=== PATIENT | male | born 1975 | race African-American/Black ===

== ENCOUNTER 2020-06-01 10:48 | Inpatient (IN) | payer MEDICAID ==
[~2020-06-01] VITALS: Ht 182.9 cm; Wt 157.3 kg
--- NOTE | ~2020-06-01 | HC ---
[facility] [place] [address] CONSULTATION Name: JENNIFER CALVILLO Room #: [facility] IN M.R.#: [id number] Admission: 06/01/20 Attend Phys: Juan A Zavala MD Discharge: 06/11/20 Date of : 77 Report #: [id number] THIS REPORT FOR: cc: FAM - No family physician/PCP FAM - No family physician/PCP Boyd Sheridan MD ~ DATE OF SERVICE: 06/08/2020 CHIEF COMPLAINT: Sacral pressure ulceration. HISTORY OF PRESENT ILLNESS: This is a 44-year-old male patient with no known past medical history who was admitted with generalized weakness. He was noted to have significant elevation in his blood glucose and in DKA. He is noted to have a sacral pressure ulcer and I have been asked to see him with regard to wound care. PAST MEDICAL HISTORY: Relatively unknown for previous illness or injury. Clearly, he has had some issues with diabetes and renal insufficiency, but these have been undiagnosed. FAMILY HISTORY: Positive for history of renal disease. ALLERGIES: He has no known drug allergies. MEDICATIONS: Upon admission were none. SOCIAL HISTORY: Negative for alcohol or tobacco use. REVIEW OF SYSTEMS: Very limited. The patient has some encephalopathy. He denies significant pain in his gluteal region. Denies shortness of breath or chest pain at this time. Other systems are either negative or unobtainable. PHYSICAL EXAMINATION: VITAL SIGNS: At this time include temperature 36.7, pulse 92, respiratory rate 16, blood pressure 136/84. GENERAL: This is a somewhat chronically ill-appearing male patient who appears to be in mild discomfort. HEENT: Head normocephalic. Nose and throat are clear. NECK: Supple. ABDOMEN: Bowel sounds are present. EXTREMITIES: demonstrate without clubbing or cyanosis. Sacral gluteal region demonstrates stage 2 sacral pressure ulceration with moderate fibrin present. No exposure of deep structures and does not appear to be overtly infected. [facility] [address] [place] [address] CONSULTATION Name: JENNIFER CALVILLO Room #: 355-P [facility] IN [facility].#: [id number] Admission: 06/01/20 Attend Phys: Juan A Zavala MD Discharge: 06/11/20 Date of : 77 Report #: [id number] LABORATORY DATA: Include a sodium 148, potassium 4.9, chloride 116, CO2 of 23, BUN 54, creatinine 2.9, glucose 189. Hemoglobin A1c 16.4, albumin 1.9. White blood cell count 19.6 with hemoglobin of 10.0. DIAGNOSTIC STUDIES: MRI of the left foot does not show evidence of abscess or underlying osteomyelitis. CLINICAL IMPRESSION: 1. Cellulitis of the left foot. 2. Stage 3 pressure ulcer of the sacrococcygeal region. 3. Uncontrolled newly diagnosed diabetes mellitus. 4. Hypertension. 5. Renal insufficiency. RECOMMENDATIONS: At this point in time, I have discussed with the patient the importance of diet and then the future exercise. We will recommend AmLactin lotion to the left foot. Recommend moisture barrier cream to the sacral region, low air loss mattress, q. 2 hour turning and repositioning. By: [id number] Boyd Sheridan MD /nt
[2020-06-01 10:51] VITALS: BP 125/81
[2020-06-01 11:14] LABS: HEMOGLOBIN 12.4 gm/dL (14.0-18.0); MCH 25.9 pg (26.0-34.0); MCHC 30.3 g/dL (28.0-37.0); MCV 85.5 fL (80.0-100.0); RDW 15.4 % (10.5-14.5); WBC 18.8 thou/uL (4.0-11.0)
[2020-06-01 11:37] LABS: ALBUMIN 2.2 g/dL (3.4-5.0); ANION GAP 19 mmol/L (7-16); BUN 123 mg/dL (7-18); CALCIUM 8.7 mg/dL (8.5-10.1); CHLORIDE 81 mmol/L (98-107); CO2 16 mmol/L (21-32); CREATININE 5.8 mg/dL (0.7-1.3); DIRECT BILIRUBIN 1.5 mg/dL (<0.1-0.2); POTASSIUM 5.5 mmol/L (3.5-5.1); SGOT 64 U/L (15-37); SGPT 52 U/L (30-65); TOTAL BILIRUBIN 2.1 mg/dL (0.2-1.0); TOTAL PROTEIN 8.7 g/dL (6.4-8.2); TROPONIN-I <0.06 ng/mL (<0.06)
[2020-06-01 11:39] LABS: SODIUM 116 mmol/L (136-145)
[2020-06-01 11:54] LABS: BE(vivo) -10.8 mmol/L (-2 to +3); HCO3 13.8 mmol/L (22.0-26.0); PO2 94.8 mmHg (80.0-100.0); pH 7.312 (7.360-7.450); sO2 96.8 % (92.0-98.0)
[2020-06-01 12:22] LABS: GLUCOSE 1441 mg/dL (74-106)
[2020-06-01 12:27] LABS: URINE BILIRUBIN NEGATIVE (Negative); URINE BLOOD 3+ (Negative); URINE CLARITY CLOUDY; URINE COLOR YELLOW; URINE GLUCOSE-RANDOM* 3+ (Negative); URINE KETONES NEGATIVE (Negative); URINE NITRITE-REFLEX NEGATIVE (Negative); URINE PROTEIN (DIPSTICK) 1+ (Negative); URINE UROBILINOGEN 0.2 E.U./dl (0.2-1.0)
[2020-06-01 12:29] LABS: URINE LEUKOCYTES-REFLEX 1+ (Negative)
[2020-06-01 12:36] LABS: AMP/METHAMP Negative (Negative); BARBITURATES Negative (Negative); BENZODIAZEPINES Negative (Negative); COCAINE Negative (Negative); METHADONE Negative (Negative); OPIATES Negative (Negative); PCP Negative (Negative)
[2020-06-01 12:44] LABS: MAGNESIUM 3.2 mg/dL (1.8-2.4); PHOSPHORUS 6.3 mg/dL (2.5-4.9)
[2020-06-01 12:53] LABS: CASTS None Seen /LPF (None Seen); SQUAMOUS 0-3 Few /LPF (0-3)
[2020-06-01 12:54] LABS: CRYSTALS None Seen /LPF (None Seen)
[2020-06-01 12:56] LABS: MUCUS 0-3 Light strn/LPF (None Seen); URINE RBC 0-2 Rare /HPF (0-2); URINE WBC-REFLEX 6-15 Few /HPF (0-5)
[2020-06-01 13:14] LABS: PLATELET COUNT 259 thou/uL (150-400); PLATELET ESTIMATE NORMAL
--- NOTE | 2020-06-01 13:37 | EKG ---
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: emanuel : 1975 Requested By: Mushtaq Patrick Order Number: [id number] MD: Trey Rodriguez Measurements Intervals [place] Rate: 125 P: 78 [place]: 146 QRS: 5 QRSD: 90 T: 22 QT: 331 QTc: 478 Interpretive Statements Sinus tachycardia Abnormal R-wave progression, late transition Borderline prolonged QT interval No previous ECG available for comparison Electronically Signed On 06-01-2020 13:36:54 SOLUTION ARCHITECT by Trey Rodriguez [email or web address] <ELECTRONICALLY SIGNED> By: Trey Rodriguez MD, FACC 06/01/20 1336 1104 1104 Trey Rodriguez MD, [facility] /EPI
[2020-06-01 13:55] LABS: ALBUMIN 2.3 g/dL (3.4-5.0); CALCIUM 8.9 mg/dL (8.5-10.1); CREATININE 5.9 mg/dL (0.7-1.3); PHOSPHORUS 6.8 mg/dL (2.5-4.9); POTASSIUM 5.7 mmol/L (3.5-5.1)
[2020-06-01 14:58] LABS: FOLIC ACID 7.9 ng/mL (8.6-58.9); TSH 0.293 uIU/mL (0.358-3.740)
[2020-06-01 15:40] LABS: INR 1.2; PROTIME 12.3 Seconds (9.3-11.4)
[2020-06-01 22:03] LABS: ALBUMIN 1.6 g/dL (3.4-5.0); CALCIUM 7.6 mg/dL (8.5-10.1); MAGNESIUM 2.7 mg/dL (1.8-2.4); PHOSPHORUS 3.7 mg/dL (2.5-4.9)
[2020-06-01 22:09] LABS: POTASSIUM 4.2 mmol/L (3.5-5.1)
[2020-06-02] VITALS (13 sets, daily range): BP systolic 107–168; BP diastolic 73–113
[2020-06-02 01:41] LABS: BE(vivo) -6.2 mmol/L (-2 to +3); HCO3 18.7 mmol/L (22.0-26.0); PCO2 35.3 mmHg (35.0-45.0); PO2 87.1 mmHg (80.0-100.0); pH 7.343 (7.360-7.450); sO2 96.2 % (92.0-98.0)
[2020-06-02 02:21] LABS: ALBUMIN 1.9 g/dL (3.4-5.0); CALCIUM 8.4 mg/dL (8.5-10.1); CREATININE 4.5 mg/dL (0.7-1.3); PHOSPHORUS 3.5 mg/dL (2.5-4.9); POTASSIUM 4.4 mmol/L (3.5-5.1)
[2020-06-02 06:11] LABS: ABSOLUTE NEUTROPHILS 15.8 thou/uL (1.4-8.2); BASOPHILS 0.2 % (0.0-2.0); HEMATOCRIT 36.4 % (42.0-52.0); HEMOGLOBIN 12.1 gm/dL (14.0-18.0); LYMPHOCYTES 9.9 % (24.0-44.0); MCH 26.5 pg (26.0-34.0); MCHC 33.2 g/dL (28.0-37.0); MONOCYTES 4.5 % (1.0-8.0); PLATELET COUNT 257 thou/uL (150-400); POLYS 85.4 % (36.0-66.0); RBC 4.55 mil/uL (4.50-6.00); RDW 14.6 % (10.5-14.5); WBC 18.5 thou/uL (4.0-11.0)
[2020-06-02 06:50] LABS: ALBUMIN 1.9 g/dL (3.4-5.0); ANION GAP 15 mmol/L (7-16); BUN 119 mg/dL (7-18); CALCIUM 8.9 mg/dL (8.5-10.1); CHLORIDE 103 mmol/L (98-107); CHOLESTEROL 127 mg/dL (<200); CO2 18 mmol/L (21-32); CREATININE 4.3 mg/dL (0.7-1.3); HDL CHOLESTEROL 8 mg/dL (>40); MAGNESIUM 3.2 mg/dL (1.8-2.4); PHOSPHORUS 3.4 mg/dL (2.5-4.9); POTASSIUM 4.2 mmol/L (3.5-5.1); SODIUM 136 mmol/L (136-145); TC:HDL 15.9 Ratio (Not establshd)
[2020-06-02 06:52] LABS: GLUCOSE 533 mg/dL (74-106)
[2020-06-02 08:17] LABS: ALBUMIN 1.9 g/dL (3.4-5.0); CALCIUM 8.8 mg/dL (8.5-10.1); CREATININE 4.3 mg/dL (0.7-1.3); POTASSIUM 4.2 mmol/L (3.5-5.1); TOTAL BILIRUBIN 1.3 mg/dL (0.2-1.0); TOTAL PROTEIN 8.2 g/dL (6.4-8.2)
[2020-06-02 10:41] LABS: ALBUMIN 1.8 g/dL (3.4-5.0); CALCIUM 8.6 mg/dL (8.5-10.1); CREATININE 4.2 mg/dL (0.7-1.3); PHOSPHORUS 3.7 mg/dL (2.5-4.9); POTASSIUM 4.2 mmol/L (3.5-5.1)
[2020-06-02 19:28] LABS: TRIGLYCERIDE 433 mg/dL (<150); VLDL 87 mg/dL (<40)
[2020-06-03] VITALS (13 sets, daily range): BP systolic 100–155; BP diastolic 71–104
[2020-06-03 06:23] LABS: ABSOLUTE NEUTROPHILS 16.5 thou/uL (1.4-8.2); BASOPHILS 0.2 % (0.0-2.0); EOSINOPHILS 0.2 % (0.0-3.0); HEMATOCRIT 36.2 % (42.0-52.0); HEMOGLOBIN 11.9 gm/dL (14.0-18.0); LYMPHOCYTES 8.4 % (24.0-44.0); MCH 26.1 pg (26.0-34.0); MCHC 32.9 g/dL (28.0-37.0); MCV 79.4 fL (80.0-100.0); MONOCYTES 3.5 % (1.0-8.0); PLATELET COUNT 277 thou/uL (150-400); POLYS 87.7 % (36.0-66.0); RBC 4.56 mil/uL (4.50-6.00); RDW 14.8 % (10.5-14.5); WBC 18.8 thou/uL (4.0-11.0)
[2020-06-03 06:34] LABS: CALCIUM 9.3 mg/dL (8.5-10.1); CREATININE 3.6 mg/dL (0.7-1.3)
[2020-06-03 06:40] LABS: ALBUMIN 1.7 g/dL (3.4-5.0); TOTAL BILIRUBIN 1.9 mg/dL (0.2-1.0); TOTAL PROTEIN 7.9 g/dL (6.4-8.2)
[2020-06-04] VITALS (19 sets, daily range): BP systolic 112–174; BP diastolic 76–107
[2020-06-04 09:22] LABS: HEMATOCRIT 34.4 % (42.0-52.0); HEMOGLOBIN 11.1 gm/dL (14.0-18.0); MCH 25.9 pg (26.0-34.0); MCHC 32.2 g/dL (28.0-37.0); MCV 80.3 fL (80.0-100.0); RBC 4.29 mil/uL (4.50-6.00); RDW 15.1 % (10.5-14.5); WBC 19.5 thou/uL (4.0-11.0)
[2020-06-04 09:33] LABS: ALBUMIN 1.8 g/dL (3.4-5.0); CALCIUM 8.6 mg/dL (8.5-10.1); CREATININE 3.8 mg/dL (0.7-1.3); PHOSPHORUS 2.9 mg/dL (2.5-4.9); POTASSIUM 5.4 mmol/L (3.5-5.1)
[2020-06-04 22:44] LABS: URINE BILIRUBIN 1+ (Negative); URINE BLOOD 3+ (Negative); URINE CLARITY CLEAR; URINE COLOR YELLOW; URINE GLUCOSE-RANDOM* NEGATIVE (Negative); URINE KETONES NEGATIVE (Negative); URINE NITRITE-REFLEX NEGATIVE (Negative); URINE PROTEIN (DIPSTICK) 1+ (Negative)
[2020-06-04 22:46] LABS: URINE LEUKOCYTES-REFLEX 1+ (Negative)
[2020-06-04 22:54] LABS: ICTOTEST (BILI CONFIRMATORY) Positive (Negative)
[2020-06-04 23:04] LABS: AMORPHOUS URATES Few /LPF (None Seen); CASTS None Seen /LPF (None Seen); MUCUS 0-3 Light strn/LPF (None Seen); SQUAMOUS 4-10 Moderate /LPF (0-3); URINE RBC 3-10 Few /HPF (0-2); URINE WBC-REFLEX 0-5 Rare /HPF (0-5)
[2020-06-04 23:05] LABS: BACTERIA-REFLEX 1-9 Few /HPF (None Seen); CRYSTALS None Seen /LPF (None Seen); TRANSITIONAL EPITHEL CELL 0-3 Few /LPF (None Seen)
[2020-06-05] VITALS (9 sets, daily range): BP systolic 104–257; BP diastolic 80–201
[2020-06-05 05:08] LABS: HEMATOCRIT 34.8 % (42.0-52.0); MCH 25.6 pg (26.0-34.0); MCHC 31.6 g/dL (28.0-37.0); MCV 81.1 fL (80.0-100.0); RBC 4.29 mil/uL (4.50-6.00); RDW 15.2 % (10.5-14.5); WBC 20.9 thou/uL (4.0-11.0)
[2020-06-05 06:09] LABS: CALCIUM 9.4 mg/dL (8.5-10.1); CREATININE 3.5 mg/dL (0.7-1.3); POTASSIUM 4.8 mmol/L (3.5-5.1)
[2020-06-05 07:07] LABS: GLYCOHEMOGLOBIN (HGB A1C) 16.4 % (4.8-5.6)
[2020-06-06 03:19] VITALS: BP 118/80
[2020-06-06 06:20] LABS: HEMATOCRIT 33.4 % (42.0-52.0); HEMOGLOBIN 10.6 gm/dL (14.0-18.0); MCH 25.9 pg (26.0-34.0); MCHC 31.7 g/dL (28.0-37.0); MCV 81.8 fL (80.0-100.0); RBC 4.09 mil/uL (4.50-6.00); RDW 15.2 % (10.5-14.5); WBC 20.8 thou/uL (4.0-11.0)
[2020-06-06 06:28] LABS: CALCIUM 8.7 mg/dL (8.5-10.1); CREATININE 3.3 mg/dL (0.7-1.3); POTASSIUM 4.3 mmol/L (3.5-5.1)
[2020-06-06 07:50] VITALS: BP 132/98
[2020-06-06 11:47] VITALS: BP 113/78
[2020-06-06 15:14] VITALS: BP 121/84
[2020-06-06 20:25] VITALS: BP 132/90
[2020-06-07 05:41] VITALS: BP 123/81
[2020-06-07 07:59] VITALS: BP 147/78
--- NOTE | 2020-06-07 08:21 | HC ---
[facility] [place] [address] CONSULTATION Name: JENNIFER CALVILLO Room #: 355- ADM IN M.R.#: [id number] Admission: 06/01/20 Attend Phys: Juan A Zavala MD Discharge: Date of : 77 Report #: [id number] THIS REPORT FOR: cc: RUSS - No family physician/PCP FAM - No family physician/PCP Brown Machuca MD ~ REASON FOR CONSULTATION: Elevated creatinine. REASON FOR PRESENTATION: Weakness and debility. HISTORY OF PRESENT ILLNESS: I am unable to obtain anything from this individual. He was brought by his family because he has been having some weakness and cough. No further details are available. The patient was found to be in an acute kidney injury with a creatinine value of 5.9 on arrival. He was also found to have COVID-19. Blood sugar on arrival was 1441. No further details are available. PAST MEDICAL HISTORY: Unobtainable given the patient's current mental status. ALLERGIES: No listed allergies. FAMILY HISTORY: Unobtainable given the patient's current mental status. SOCIAL HISTORY: Unobtainable given the patient's current mental status. REVIEW OF SYSTEMS: Unobtainable given the patient's current mental status. MEDICATIONS: Unobtainable given the patient's current mental status. PHYSICAL EXAMINATION: GENERAL: The patient is very confused, lethargic. VITAL SIGNS: Temperature 36.8, blood pressure 120/78, respiratory rate is 29, pulse rate is 116. HEAD AND NECK: No jugular venous distention. Dry mucous membrane. CHEST: Decreased air entry bilaterally. CARDIOVASCULAR: No rub detected. ABDOMEN: Obese. LOWER EXTREMITIES: No edema. LABORATORY DATA: White blood cell count 18.8, hemoglobin 11.9. The pH yesterday was 7.3, it is up to 7.34 today. Sodium is 147, potassium is 4, chloride is 115, carbon dioxide is 19, up from 16 on arrival. BUN is down to 109 from 123 on arrival, creatinine is down to 3.6 from 5.8. The patient tested positive for COVID-19. [facility] [address] [place] [address] CONSULTATION Name: JENNIFER CALVILLO Room #: 355-P [facility] IN M.R.#: [id number] Admission: 06/01/20 Attend Phys: Juan A Zavala MD Discharge: Date of : 77 Report #: [id number] Chest x-ray, no evidence of an infiltrate. Renal ultrasound, evidence of bilateral hydronephrosis with a distended bladder. IMPRESSION: 1. Acute kidney injury. 2. Bilateral hydronephrosis. 3. Nonketotic hyperosmolar status. 3. Diabetes mellitus. 4. COVID-19. PLAN: 1. The patient's kidney function is improving. His acute kidney injury is multifactorial related to his current acute COVID-19 infection, bilateral hydronephrosis and obstruction, he is status post suprapubic catheter. Unfortunately, we do not have a Urology Service available in our facility and we were not able to transfer the patient where Urology Service is available. 2. His creatinine seems to be improving. I will reformulate his IV fluid to address his hypernatremia. 7. Continue to monitor daily electrolytes and renal function. 8. Treatment for his COVID-19. 9. Transferred to a facility where Urology is available whenever possible. 10. Avoid nephrotoxins. 11. Management of blood sugar per Endocrinology. 12. We will continue to follow. <ELECTRONICALLY SIGNED> By: Brown Machuca MD 06/07/20 0821 1105 [id number] Brown Machuca MD /nt
[2020-06-07 08:50] LABS: CALCIUM 8.8 mg/dL (8.5-10.1); CREATININE 2.9 mg/dL (0.7-1.3); POTASSIUM 4.9 mmol/L (3.5-5.1)
[2020-06-07 08:55] LABS: ALBUMIN 1.9 g/dL (3.4-5.0); PHOSPHORUS 3.7 mg/dL (2.5-4.9)
[2020-06-07 11:38] LABS: ABSOLUTE NEUTROPHILS 16.9 thou/uL (1.4-8.2); BASOPHILS 0.2 % (0.0-2.0); EOSINOPHILS 0.7 % (0.0-3.0); HEMATOCRIT 32.7 % (42.0-52.0); LYMPHOCYTES 10.3 % (24.0-44.0); MCH 25.8 pg (26.0-34.0); MCHC 30.7 g/dL (28.0-37.0); MONOCYTES 2.6 % (1.0-8.0); POLYS 86.2 % (36.0-66.0); RBC 3.89 mil/uL (4.50-6.00); WBC 19.6 thou/uL (4.0-11.0)
[2020-06-07 11:47] VITALS: BP 105/71
[2020-06-07 12:04] LABS: PLATELET COUNT 268 thou/uL (150-400); PLATELET ESTIMATE NORMAL
[2020-06-07 12:05] LABS: ANISOCYTOSIS 1+; HYPOCHROMASIA 1+; LARGE PLATELETS OCCASIONAL
[2020-06-07 12:06] LABS: MACROCYTES FEW; MICROCYTES FEW
[2020-06-07 15:38] VITALS: BP 128/78
[2020-06-07 19:57] VITALS: BP 119/74
[2020-06-08 03:37] VITALS: BP 115/77
[2020-06-08 07:40] VITALS: BP 123/60
[2020-06-08 11:21] VITALS: BP 126/87
[2020-06-08 15:17] VITALS: BP 136/84
[2020-06-08 19:28] VITALS: BP 120/77
[2020-06-09 03:25] VITALS: BP 120/82
[2020-06-09 08:00] VITALS: BP 114/71
[2020-06-09 12:28] VITALS: BP 129/82
[2020-06-09 21:48] VITALS: BP 136/75
[2020-06-10 05:00] VITALS: BP 118/75
[2020-06-10 05:43] LABS: ABSOLUTE NEUTROPHILS 9.1 thou/uL (1.4-8.2); BASOPHILS 0.8 % (0.0-2.0); EOSINOPHILS 0.9 % (0.0-3.0); HEMATOCRIT 25.3 % (42.0-52.0); HEMOGLOBIN 8.2 gm/dL (14.0-18.0); MCH 26.9 pg (26.0-34.0); MCHC 32.4 g/dL (28.0-37.0); MCV 83.1 fL (80.0-100.0); MONOCYTES 4.9 % (1.0-8.0); POLYS 79.4 % (36.0-66.0); RBC 3.04 mil/uL (4.50-6.00); RDW 14.8 % (10.5-14.5); WBC 11.5 thou/uL (4.0-11.0)
[2020-06-10 06:18] LABS: PLATELET COUNT 184 thou/uL (150-400)
[2020-06-10 07:42] VITALS: BP 128/80
[2020-06-10 11:41] VITALS: BP 124/70
[2020-06-10 15:35] VITALS: BP 128/64
[2020-06-10 20:46] VITALS: BP 150/74
[2020-06-11 03:40] VITALS: BP 124/74
[2020-06-11 07:52] VITALS: BP 120/81
[2020-06-11 12:10] VITALS: BP 134/72
[2020-06-11 16:19] VITALS: BP 118/68
== END 2020-06-11 18:37 | disposition short-term general hospital (02) | DRG 871 ==
LOC: ER 10:48 → 3W 12:51 → EROBS 12:51 → ICU 06-02 12:49 → 3W 06-05 06:08
PROVIDERS: Emergency Medicine; Hospitalist; Nurse Practitioner; Nurse Practitioner Family; Specialist; ADMIT Hospitalist; ATTEND Hospitalist
PROC: 0T9B30Z Drainage of Bladder with Drainage Device, Percutaneous Approach (ICD-10-PCS; principal; 2020-06-01)
DX: A41.9 Sepsis, unspecified organism (principal); E11.10 Type 2 diabetes mellitus with ketoacidosis without coma; L89.153 Pressure ulcer of sacral region, stage 3; G93.41 Metabolic encephalopathy; E43 Unspecified severe protein-calorie malnutrition; N17.0 Acute kidney failure with tubular necrosis; U07.1 COVID-19; E87.1 Hypo-osmolality and hyponatremia; M62.82 Rhabdomyolysis; L03.116 Cellulitis of left lower limb; N13.6 Pyonephrosis; N41.2 Abscess of prostate; Z68.42 Body mass index [BMI] 45.0-49.9, adult; E87.5 Hyperkalemia; R74.01 Elevation of levels of liver transaminase levels; R13.10 Dysphagia, unspecified; K75.9 Inflammatory liver disease, unspecified; E66.01 Morbid (severe) obesity due to excess calories; Z28.21 Immunization not carried out because of patient refusal; Z79.899 Other long term (current) drug therapy
CPT/HCPCS: 10078; 10879